=== PATIENT | male | born 1995 | race Caucasian/White ===

== ENCOUNTER 2016-07-31 09:21 | Emergency (ER) | payer SELFPAY ==
[~2016-07-31] VITALS: Ht 180.3 cm; Wt 124.7 kg
[~2016-07-31 09:21] MED LIST: AMOXICILLIN500 M2 PO; CLARITIN5 MG/5 ML PO; HYDROCODONE BIT1 T11 PO; MOTRIN400 MG PO; MOTRIN800 MG PO; NARCO; NKHM; PEN-V500 MG PO; PHENERGAN W/ DE30 ML PO; PREDNICOT10 MG PO; PREDNISONE20 M1 PO; PROAIR HFA0.09 MG/AC INH; TYLENOL W/CODEI1 TA2 PO; ZYRTEC10 MG PO
[2016-07-31] MEDS ORDERED: DELTASONE20 M1 PO (11:00)
[2016-07-31] MEDS ORDERED: ZITHROMAX250 MG PO (11:00)
== END 2016-07-31 11:04 | disposition home or self-care (01) ==
LOC: ED 09:21
DX: J40 Bronchitis, not specified as acute or chronic (principal); F17.200 Nicotine dependence, unspecified, uncomplicated

== ENCOUNTER 2017-09-07 22:05 | Emergency (ER) | payer OTHER ==
[~2017-09-07] VITALS: Ht 180.3 cm; Wt 133.8 kg
[~2017-09-07 22:05] MED LIST changes: +DELTASONE20 M1 PO; +ZITHROMAX250 MG PO
[2017-09-08] MEDS ORDERED: MEDROL DOSEPAK4 MG PO (00:09)
[2017-09-08] MEDS ORDERED: CYCLOBENZAPRINE5 M3 PO (00:09)
== END 2017-09-08 00:27 | disposition home or self-care (01) ==
LOC: ED 22:05
DX: M54.16 Radiculopathy, lumbar region (principal); F17.200 Nicotine dependence, unspecified, uncomplicated

== ENCOUNTER 2018-07-05 18:36 | Emergency (ER) | payer BC ==
[~2018-07-05] VITALS: Ht 180.3 cm; Wt 129.3 kg
--- NOTE | ~2018-07-05 | EKG ---
[place], [place] ELECTROCARDIOGRAM REPORT NAME: MUKUND GROVE UNIT #: [id number] ROOM: DOCTOR: EPIPHANY DRAFT REPORT BIRTHDATE: [birth year] [facility] Test Date: 2018-07-05 Test Time: 18:49:28 Pat Name: MUKUND GROVE Department: Room: Gender: Auto [employer]: RESP : 1995 Requested By: JUDITH HINOJOSA DNP Order Number: [id number] Reading MD: Roverto Trent MD Measurements Intervals [place] Rate: 77 P: 40 [place]: 169 QRS: 41 QRSD: 96 T: 25 QT: 357 QTc: 404 Interpretive Statements Sinus rhythm Nonspecific ST T changes Electronically Signed On 07-06-2018 4:21:17 PST by Roverto Trent MD CM:EKGRPT:ELECTROCARDIOGRAM REPORT [id number] JUDITH HINOJOSA DNP EPIPHANY DRAFT REPORT JUDITH HINOJOSA DNP
[~2018-07-05 18:36] MED LIST changes: +CYCLOBENZAPRINE5 M3 PO; +MEDROL DOSEPAK4 MG PO
[2018-07-05 19:25] LABS: BASO # 0.1 10*3/uL (0.0-0.1); BASO % 0.6 % (0.0-1.0); EOS # 0.7 10*3/uL (0.0-0.4); EOS % 6.5 % (1.0-4.0); HEMATOCRIT 44.1 % (42.0-52.0); HEMOGLOBIN 15.5 g/dl (14.0-18.0); LYMPH # 3.6 10*3/uL (1.3-4.4); LYMPH % 32.1 % (27.0-41.0); MEAN CORPUSCULAR HGB 29.5 pg (27.0-31.0); MEAN CORPUSCULAR HGB CONC 35.1 g/dl (33.0-37.0); MEAN PLATELET VOLUME 9.7 fl (9.6-12.3); MONO # 0.7 10*3/uL (0.1-1.0); NEUT % 54.5 % (47.0-73.0); PLATELET COUNT AUTOMATED 326 10*3/uL (130-400); RED BLOOD COUNT 5.25 10*6/uL (4.50-5.90); RED CELL DISTRI WIDTH 12.9 % (0-14.5); WHITE BLOOD COUNT 11.1 10*3/uL (4.8-10.8)
[2018-07-05 19:41] LABS: ALKALINE PHOSPHATASE 69 U/L (45-117); BUN 12 mg/dl (7-24); CHLORIDE 109 mmol/L (98-107); CREATININE 0.76 mg/dL (0.70-1.30); POTASSIUM 3.6 mmol/L (3.5-5.1); SGOT/AST 21 IU/L (3-35); SGPT/ALT 52 U/L (12-78); SODIUM 141 mmol/L (136-145); TOTAL PROTEIN 7.5 gm/dL (6.4-8.2)
[2018-07-05 19:45] LABS: TROPONIN I < 0.015 ng/ml (<0.045)
== END 2018-07-05 19:50 | disposition home or self-care (01) ==
LOC: ED 18:36
PROVIDERS: Nurse Practitioner Family
DX: R07.89 Other chest pain (principal); R42 Dizziness and giddiness; F17.200 Nicotine dependence, unspecified, uncomplicated

== ENCOUNTER → 2018-07-07 | Outpatient (CLI) | payer BC | END | disposition home or self-care (01) | LOC: RESCLI 08:44 | DX: F41.1 Generalized anxiety disorder (principal); F32.2 Major depressive disorder, single episode, severe without psychotic features; E66.09 Other obesity due to excess calories; F17.210 Nicotine dependence, cigarettes, uncomplicated; Z71.6 Tobacco abuse counseling; Z68.39 Body mass index [BMI] 39.0-39.9, adult; Z76.89 Persons encountering health services in other specified circumstances; Z88.8 Allergy status to other drugs, medicaments and biological substances ==

== ENCOUNTER → 2018-07-23 | Outpatient (CLI) | payer BC ==
[~2018-07-23] MED LIST changes: +AUGMENTIN 875875 MG PO; +HYDROCODONE-AC1 EAC1 PO; +NORCO 5-325 TA1 EACH PO; +SERTRALINE HYD100 MG PO; +ULTRAM50 MG PO
== END | disposition home or self-care (01) ==
LOC: RESCLI 03:57
DX: F32.2 Major depressive disorder, single episode, severe without psychotic features (principal); F41.1 Generalized anxiety disorder; E66.09 Other obesity due to excess calories; F17.210 Nicotine dependence, cigarettes, uncomplicated; Z68.39 Body mass index [BMI] 39.0-39.9, adult; Z71.6 Tobacco abuse counseling; Z88.8 Allergy status to other drugs, medicaments and biological substances

== ENCOUNTER → 2018-08-27 | Outpatient (CLI) | payer BC | END | disposition home or self-care (01) | LOC: RESCLI 09:10 | DX: E66.09 Other obesity due to excess calories (principal); F41.1 Generalized anxiety disorder; F32.2 Major depressive disorder, single episode, severe without psychotic features; F17.200 Nicotine dependence, unspecified, uncomplicated; Z71.6 Tobacco abuse counseling; Z68.39 Body mass index [BMI] 39.0-39.9, adult; Z79.899 Other long term (current) drug therapy; Z88.8 Allergy status to other drugs, medicaments and biological substances ==

== ENCOUNTER 2018-12-06 00:07 | Emergency (ER) | payer BC ==
[~2018-12-06] VITALS: Ht 180.3 cm; Wt 136.1 kg
[~2018-12-06 00:07] MED LIST changes: -AUGMENTIN 875875 MG PO; -HYDROCODONE-AC1 EAC1 PO; -NORCO 5-325 TA1 EACH PO; -SERTRALINE HYD100 MG PO; -ULTRAM50 MG PO
[2018-12-06 00:57] LABS: BASO # 0.1 10*3/uL (0.0-0.1); BASO % 0.5 % (0.0-1.0); EOS # 0.5 10*3/uL (0.0-0.4); EOS % 3.7 % (1.0-4.0); HEMOGLOBIN 16.6 g/dl (14.0-18.0); LYMPH # 2.8 10*3/uL (1.3-4.4); LYMPH % 21.3 % (27.0-41.0); MEAN CELL VOLUME 86.5 fl (80.0-94.0); MEAN CORPUSCULAR HGB 29.9 pg (27.0-31.0); MEAN CORPUSCULAR HGB CONC 34.6 g/dl (33.0-37.0); MEAN PLATELET VOLUME 9.8 fl (9.6-12.3); MONO % 7.6 % (3.0-9.0); NEUT # 8.7 10*3/uL (2.3-7.9); NEUT % 66.4 % (47.0-73.0); PLATELET COUNT AUTOMATED 375 10*3/uL (130-400); RED BLOOD COUNT 5.55 10*6/uL (4.50-5.90); RED CELL DISTRI WIDTH 13.1 % (0-14.5); WHITE BLOOD COUNT 13.2 10*3/uL (4.8-10.8)
[2018-12-06 01:17] LABS: ALBUMIN 4.3 gm/dl (3.1-4.5); ALKALINE PHOSPHATASE 75 U/L (45-117); BUN 15 mg/dl (7-24); CHLORIDE 107 mmol/L (98-107); CREATININE 0.94 mg/dL (0.70-1.30); POTASSIUM 4.1 mmol/L (3.5-5.1); SGOT/AST 26 IU/L (3-35); SGPT/ALT 57 U/L (12-78); SODIUM 142 mmol/L (136-145); TOTAL PROTEIN 8.1 gm/dL (6.4-8.2)
[2018-12-06 02:30] LABS: BILIRUBIN NEGATIVE (NEGATIVE); BLOOD NEGATIVE (NEGATIVE); CLARITY CLEAR (CLEAR); COLOR YELLOW (YELLOW); GLUCOSE NEGATIVE (NEGATIVE); KETONE NEGATIVE (NEGATIVE); LEUKO ESTERASE NEGATIVE (NEGATIVE); NITRITE NEGATIVE (NEGATIVE); PH 5.5 (5.0-9.0); SPECIFIC GRAVITY >= 1.030 (1.005-1.030); UROBILINOGEN 0.2 E.U./dl (0.2-1.0)
[2018-12-06 02:37] LABS: BACTERIA 1+; MUCOUS 4+; RBC 0-2 rbc/hpf (0-2)
[2018-12-06 04:04] LABS: LIPASE 63 U/L (73-393)
[2018-12-06] MEDS ORDERED: ULTRAM50 MG PO (05:09)
[2018-12-09] MEDS ORDERED: SERTRALINE HYD100 MG PO (16:12)
[2018-12-10] MEDS ORDERED: HYDROCODONE-AC1 EAC1 PO (13:02)
[2018-12-10] MEDS ORDERED: AUGMENTIN 875875 MG PO (13:02)
[2019-01-03] MEDS ORDERED: NORCO 5-325 TA1 EACH PO (12:15)
[2019-01-03] MEDS ORDERED: AUGMENTIN 875875 MG PO (12:24)
== END 2018-12-06 05:39 | disposition home or self-care (01) ==
LOC: ED 00:07
PROVIDERS: Emergency Medicine
DX: K80.80 Other cholelithiasis without obstruction (principal)

== ENCOUNTER 2022-03-27 04:37 | Emergency (ER) | payer BC ==
[~2022-03-27] VITALS: Ht 182.8 cm; Wt 113.4 kg
[~2022-03-27 04:37] MED LIST changes: +AUGMENTIN 875875 MG PO; +HYDROCODONE-AC1 EAC1 PO; +NORCO 5-325 TA1 EACH PO; +SERTRALINE HYD100 MG PO; +ULTRAM50 MG PO
[2022-03-27] MEDS ORDERED: AMOX-CLAV 875-1 EACH PO (05:34)
[2022-03-27] MEDS ORDERED: PAXLOVID 300-11 EAC1 PO (05:34)
== END 2022-03-27 05:25 | disposition home or self-care (01) ==
LOC: ED 04:37
DX: U07.1 COVID-19 (principal); H92.02 Otalgia, left ear; F17.210 Nicotine dependence, cigarettes, uncomplicated; Z79.899 Other long term (current) drug therapy; Z79.2 Long term (current) use of antibiotics; Z90.89 Acquired absence of other organs; Z96.22 Myringotomy tube(s) status

== ENCOUNTER 2022-08-15 23:17 | Emergency (ER) | payer BC ==
[~2022-08-15] VITALS: Wt 140.6 kg
[~2022-08-15 23:17] MED LIST changes: +AMOX-CLAV 875-1 EACH PO; +PAXLOVID 300-11 EAC1 PO
[2022-08-16] MEDS ORDERED: IBU800 M2 PO (00:10)
== END 2022-08-16 00:57 | disposition home or self-care (01) ==
LOC: ED 23:17
DX: S60.221A Contusion of right hand, initial encounter (principal); Z90.89 Acquired absence of other organs; Z98.890 Other specified postprocedural states; F17.210 Nicotine dependence, cigarettes, uncomplicated; F10.90 Alcohol use, unspecified, uncomplicated; W10.9XXA Fall (on) (from) unspecified stairs and steps, initial encounter; Y93.89 Activity, other specified; Y92.89 Other specified places as the place of occurrence of the external cause; Y99.8 Other external cause status

== ENCOUNTER 2022-12-07 15:22 | Emergency (ER) | payer BC ==
[~2022-12-07 15:22] MED LIST changes: +IBU800 M2 PO
== END 2022-12-07 19:11 | disposition left against medical advice (07) ==
LOC: ED 15:22
DX: R07.89 Other chest pain (principal); M54.6 Pain in thoracic spine; J45.909 Unspecified asthma, uncomplicated; K21.9 Gastro-esophageal reflux disease without esophagitis; F41.9 Anxiety disorder, unspecified; F32.A Depression, unspecified; Z53.21 Procedure and treatment not carried out due to patient leaving prior to being seen by health care provider

== ENCOUNTER 2024-09-07 02:02 | Emergency (ER) | payer SELFPAY ==
[~2024-09-07] VITALS: Ht 180.3 cm; Wt 127.0 kg
[2024-09-07] MEDS ORDERED: methylPREDNISolone sod succ 125 MG VIAL IM ONE (03:10)
[2024-09-07] MEDS ORDERED: PREDNISONE20 M1 PO (03:17)
[2024-09-07] MEDS ORDERED: ZITHROMAX250 MG PO (03:17)
== END 2024-09-07 03:36 | disposition home or self-care (01) ==
LOC: ED 02:02
DX: B34.9 Viral infection, unspecified (principal); Z20.822 Contact with and (suspected) exposure to COVID-19; J45.909 Unspecified asthma, uncomplicated; K21.9 Gastro-esophageal reflux disease without esophagitis; F41.9 Anxiety disorder, unspecified; F32.A Depression, unspecified; F17.200 Nicotine dependence, unspecified, uncomplicated; Z90.89 Acquired absence of other organs; Z98.890 Other specified postprocedural states